=== PATIENT | male | born 1970 | race Caucasian/White ===

== ENCOUNTER → 2017-12-20 | Outpatient (REF) | payer OTHER | LOC: M LAB REF 19:15 | DX: L02.413 Cutaneous abscess of right upper limb (principal) ==

== ENCOUNTER → 2018-10-16 | Outpatient (CLI) | payer OTHER ==
--- NOTE | 2018-10-17 09:29 | REP ---
MR LUMBAR SPINE WITHOUT CONTRAST: HISTORY: Back pain. Decreased signal intensity on T2-weighted images is present in the L1-2, L2-3, L4-5, and L5-S1 intervertebral discs. The discs represents disc degeneration. There is no disc bulge or herniation at the L1-2 level. The L1 nerves exit the neural foramina without compression. A diffuse disc bulge is present at the L2-3 level. There is minimal compression of the thecal sac. There is hypertrophy of the posterior articulating facets. L2 nerves exit the neural foramina without compression. A diffuse disc bulge is present at the L3-4 level. There is minimal compression of the thecal sac. There is hypertrophy of the posterior articulating facets. The L3 nerves exit the neural foramina without compression. A diffuse disc bulge is present at the L4-5 level. There is minimal compression of the thecal sac. There is hypertrophy of the posterior articulating facets. The L4 nerves exit the neural foramina without compression. A diffuse disc bulge and small right paracentral is present at the L5-S1 level. There is minimal compression of the thecal sac. There is hypertrophy of the posterior articulating facets. The L5 nerves exit the neural foramina without compression. The conus medullaris is normal in appearance terminating at the level of the L1-2 intervertebral disc. Increased signal intensity on T2-weighted images is present in the end plates of the L5 and S1 vertebral bodies. This represents degenerative changes. IMPRESSION: 1. Diffuse disc bulges at the L2-3 through L4-5 levels with minimal thecal sac compression. 2. Diffuse disc bugle and small right paracentral disc protrusion at the L5-S1 level with minimal thecal sac compression. Electronically Signed by Arsh Patel MD 10/17/2018 09:47 A
== END ==
LOC: M RAD 17:04
PROVIDERS: ATTEND Family Medicine
DX: M51.26 Other intervertebral disc displacement, lumbar region (principal); M51.27 Other intervertebral disc displacement, lumbosacral region

== ENCOUNTER 2019-04-03 04:10 | Emergency (ER) | payer OTHER ==
[~2019-04-03] VITALS: Ht 188 cm; Wt 93.2 kg
[2019-04-03] MEDS ORDERED: CELE1CAP9 (04:17)
[2019-04-03] MEDS ORDERED: DULO1CAP4 (04:17)
[2019-04-03] MEDS ORDERED: VIAG100T (04:17)
[2019-04-03] MEDS ORDERED: METH1TAB40 (04:17)
[2019-04-03] MEDS ORDERED: DULO1CAP5 (04:17)
[2019-04-03] MEDS ORDERED: SILD100T (04:17)
[2019-04-03] MEDS ORDERED: ONDANSETRON 4MG/2ML VIAL (J2405) IV ONE (05:45)
[2019-04-03] MEDS ORDERED: KETOROLAC 30 MG/ML VIAL (J1885) IV ONE (05:45)
[2019-04-03 05:59] LABS: ALT/SGPT 61 U/L (12-78); BILIRUBIN,DIRECT 0.2 MG/DL (0.0-0.2); BLOOD UREA NITROGEN 24 MG/DL (7-18); CALCIUM LEVEL 9.1 MG/DL (8.5-10.1); CARBON DIOXIDE LEVEL 29 MEQ/L (21-32); CHLORIDE LEVEL 108 MEQ/L (98-107); CREATININE FOR GFR 1.17 MG/DL (0.70-1.30); GLOMERULAR FILTRATION RATE > 60.0 (>60); GLUCOSE, FASTING 123 MG/DL (70-100); POTASSIUM SERUM 3.9 MEQ/L (3.5-5.1); SODIUM LEVEL 141 MEQ/L (136-145); TOTAL PROTEIN 7.4 GM/DL (6.4-8.2)
[2019-04-03 06:01] LABS: HEMATOCRIT 46.3 % (42.0-52.0); HEMOGLOBIN 15.1 g/dl (13.5-17.5); MEAN CORPUSCULAR HEMOGLOBIN 29.7 pg (27.0-33.0); MEAN CORPUSCULAR HGB CONC 32.6 g/dl (32.0-36.5); PLATELET COUNT, AUTOMATED 187 10^3/uL (150-450); RED BLOOD COUNT 5.09 10^6/uL (4.30-6.10); WHITE BLOOD COUNT 11.8 10^3/uL (4.0-10.0)
--- NOTE | 2019-04-03 07:20 | REPVR ---
PROCEDURE INFORMATION: Exam: CT Abdomen And Pelvis Without Contrast Exam date and time: 04/03/2019 6:31 AM Age: 48 years old Clinical history: Abdominal pain; Flank; Right; Additional info: Right flank pain TECHNIQUE: Imaging protocol: Computed tomography of the abdomen and pelvis without contrast. Radiation optimization: All CT scans at this facility use at least one of these dose optimization techniques: automated exposure control; mA and/or kV adjustment per patient size (includes targeted exams where dose is matched to clinical indication); or iterative reconstruction. COMPARISON: No relevant prior studies available. FINDINGS: Detailed evaluation of the abdominal and pelvic viscera is somewhat limited in the absence of intravenous contrast. Pleural space: Trace right basilar airspace disease and pleural effusion. Liver: No focal hepatic mass. Gallbladder and bile ducts: No cholelithiasis or biliary ductal dilatation. Pancreas: No pancreatic mass or ductal dilatation. Spleen: Splenic granulomata. Adrenals: Unremarkable adrenals. Kidneys and ureters: Moderate right hydronephrosis in association with a 4 mm right UVJ calculus. Mild infiltration of right perinephric and periureteral fat. Stomach and bowel: Wall thickening in the nondistended stomach, rectum, and left colon. Prominent stool and diverticula, without pericolonic inflammation. Appendix: No acute appendicitis. Intraperitoneal space: No free fluid. Vasculature: Normal caliber of the abdominal aorta. Lymph nodes: Subcentimeter lymph nodes. Bladder: Normal bladder morphology. Reproductive: Unremarkable as visualized. Bones/joints: Schmorl's nodes and vertebral endplate irregularity. Degenerative change and L5-S1 vacuum disc. Soft tissues: Small fat containing umbilical and inguinal hernias. Punctate calcification in the right inguinal canal. IMPRESSION: 1. Moderate right hydronephrosis in association with a 4 mm right UVJ calculus. 2. Wall thickening in the nondistended stomach, rectum, and left colon. 3. Prominent stool and diverticula, without pericolonic inflammation. 4. Additional findings as described above. Electronically signed by: Mikhail Hanley On 04/03/2019 07:19:59 AM
[2019-04-03] MEDS ORDERED: FLOM0.4C39 PO ×2 (07:37→07:50)
[2019-04-03] MEDS ORDERED: PERC5TAB12 PO ×2 (07:37→07:50)
[2019-04-03] MEDS ORDERED: TAMSULOSIN 0.4 MG CAP PO ONE (07:45)
[2019-04-03 07:48] VITALS: BP 123/69
== END 2019-04-03 08:17 | disposition home or self-care (01) ==
LOC: M ED 04:10
DX: N13.2 Hydronephrosis with renal and ureteral calculous obstruction (principal); G89.29 Other chronic pain; M54.9 Dorsalgia, unspecified; Z86.14 Personal history of Methicillin resistant Staphylococcus aureus infection; Z79.891 Long term (current) use of opiate analgesic; Z79.899 Other long term (current) drug therapy
CPT/HCPCS: 36415; 74176; 80048; 80076; 81001; 85027; 96374; 96375; 99284; J1885; J2405

== ENCOUNTER 2020-05-28 06:54 | Day surgery (SDC) | payer OTHER ==
[~2020-05-28] VITALS: Ht 188 cm; Wt 98.0 kg
[~2020-05-28 06:54] MED LIST: ACET650T15 PO; CELE1CAP9; DULO1CAP4; DULO1CAP5; FLOM0.4C39 PO; METH-1164; MULT-90 PO; NEUR300C PO; NS 1,000 ML IV ONE; PERC5TAB12 PO; SILD100T; VIAG100T
--- OUTSIDE RECORDS SUMMARY | 2020-05-28 06:59 | CCD | Continuity of Care Document ---
Author Author Christiano MATTHEWS DC Organization Unknown Address [address] [place] [address] [place] [address] Phone [phone] Care Team Providers Care Stenciler Name Role Phone [facility] AUTM [facility] AUTM [phone] Problems Description No Information Available Social History Type Date Description Comments Sex Unknown ETOH Use Drinks 1 Alcoholic Beverage Per Day Tobacco Use Start: Unknown Patient has never smoked Tobacco Use Start: Unknown The Patient Has Never Vaped Smoking Status Reviewed: 03/29/20 The Patient Has Never Vaped Allergies, Adverse Reactions, Alerts Description No Known Drug Allergies Medications Active Medications SIG Qnty Indications Ordering Provide r Date Doxycycline Hyclate 100mg Capsules 1 twice a day x 7 days, take with food 14caps J01.90 Jose lane JR., M.D. 03/29/2020 Prednisone 20mg Tablets 1 tabs three x daily for 5 days 15tabs J01.90 Jose Ferreira JR., M.D. Celebrex 200mg Capsules Unknown Zyrtec Allergy 10mg Capsules 1 by mouth every day Unknown Robaxin 500mg Tablets take one twice a day for muscle relaxant Unknown Tylenol 8 Hour 800mg Tablets ER as directed Unknown Multivitamin Adult Chewtabs 1 by mouth every day Unknown Gabapentin 300mg Capsules Unknown Immunizations Description No Information Available Vital Signs Date Vital Result Comment 03/29/2020 12:09pm BP Systolic 127 mmHg BP Diastolic 87 mmHg Heart Rate 54 /min Respiratory Rate 16 /min O2 % BldC Oximetry 98 % Body Temperature 98.0 F Weight 210.00 lb Height 74 inches 6'2" BMI (Body Mass Index) 27.0 kg/m2 Pain Level 1 08/24/2019 5:54pm BP Systolic 140 mmHg BP Diastolic 90 mmHg Heart Rate 60 /min Respiratory Rate 16 /min O2 % BldC Oximetry 99 % Body Temperature 98.5 F Weight 202.00 lb Height 74 inches 6'2" BMI (Body Mass Index) 25.9 kg/m2 Pain Level 3 Results Description No Information Available Procedures Description No Information Available Medical Devices Description No Information Available Encounters Type Date Location Provider Dx Diagnosis Office Visit 03/29/2020 10:10a Main Office MAKENZIE Vergara J01.9 0 Acute sinusitis, unspecified Assessments Date Code Description Provider 03/29/2020 J01.90 Acute sinusitis, unspecified MAKENZIE Gilbert Plan of Treatment 03/29/2020 - MAKENZIE Vergara* J01.90 Acute sinusitis, unspecified* New Medication:* Doxycycline Hyclate 100 mg - 1 twice a day x 7 days, take with food * Prednisone 20 mg - 1 tabs three x daily for 5 days * Comments:* Supportive care: Vit c, rest, push clear fluids, steam. RTC if worsening despite txt, persistent sxs or new sxs Functional Status Description No Information Available Mental Status Description No Information Available Referrals Refer to Reason for Referral Status Appt Date Hayley Matthews PA Created [facility] [place] [address] [phone]
--- OUTSIDE RECORDS SUMMARY | 2020-05-28 06:59 | CCD | Continuity of Care Document ---
Author Author Christiano LAMA M.D. Organization Unknown Address [address] [place] [address] Phone [phone] Care Team Providers Care Marketing Strategy Lead Name Role Phone Carl Aparicio AUTM [phone] Problems Active Problems Provider Date Screening for malignant neoplasm of colon Rob hu M.D. Onset: 04/24/2020 Social History Type Date Description Comments Sex Unknown ETOH Use Occasionally Tobacco Use Start: Unknown Patient has never smoked Allergies, Adverse Reactions, Alerts Description No Known Drug Allergies Medications Active Medications SIG Qnty Indications Ordering Provide r Date Suprep Bowel Prep Kit 17.5-3.13-1.6GM/177ML Solution use as directed 354ml Rob Lama M.D. 04/24/2020 Methocarbamol 500mg Tablets Freida Damon MD Gabapentin 300mg Capsules Freida Damon MD Celecoxib 200mg Capsules Freida Damon MD Sildenafil Citrate 100mg Tablets Unknown Duloxetine HCL 20mg Caps Freida Landin MD Tylenol 325mg Capsules Unknown Multiple Vitamin Tablets Unknown Immunizations Description No Information Available Vital Signs Date Vital Result Comment 04/24/2020 12:35pm Height 74 inches 6'2" Weight 225.00 lb BP Systolic 133 mmHg BP Diastolic 85 mmHg Heart Rate 64 /min BMI (Body Mass Index) 28.9 kg/m2 Weight 102.060 kg Body Temperature 97.3 F Results Description No Information Available Procedures Description No Information Available Medical Devices Description No Information Available Encounters Type Date Location Provider Dx Diagnosis Office Visit 04/24/2020 12:30p Main Office Rob Lama M.D. Z 12.11 Encounter for screening for malignant neoplasm of colon Assessments Date Code Description Provider 04/24/2020 Z12.11 Encounter for screening for cinthia gnant neoplasm of colon Rob Lama M.D. Plan of Treatment Future Appointment(s):* 05/28/2020 8:00 am - Rob Lama M.D. at Main Office 04/24/2020 - Rob Lama M.D.* Z12.11 Encounter for screening for malignant neoplasm of colon* Comments:* 49 yo wm who presents for a screening colonoscopy. No c/o abdominal pain, weight loss, change in bowel habits, or rectal bleeding. No family h/o colon cancer. No h/o chest pain, or sob. Plan:1.Schedule patient for a colonoscopy.2.Informed consent given to the patient.3.Pt. advised to stop aspirin,plavix, and anticoagulants at least 3 to 7 days prior to the procedure. Functional Status Description No Information Available Mental Status Description No Information Available Referrals Refer to Reason for Referral Status Appt Date Rob Lama M.D. Created [address] [place] [address] [phone]
--- OUTSIDE RECORDS SUMMARY | 2020-05-28 07:00 | CCD ---
Author Author [facility] Organization [facility] Address Unknown Phone Unavailable Care Team Providers Care Wing Scorer Name Role Phone Vane Lama MD Unavailable Unavailable Vane Lama MD Unavailable Unavailable Vane Lama MD Unavailable Unavailable Vane Lama MD Unavailable Unavailable Vane Lama MD Unavailable Unavailable Vane Lama MD Unavailable Unavailable Vane Lama MD Unavailable Unavailable Vane Lama MD Unavailable Unavailable Vane Lama MD Unavailable Unavailable Vane Lama MD Unavailable Unavailable Vane Lama MD Unavailable Unavailable Vane Lama MD Unavailable Unavailable Vane Lama MD Unavailable Unavailable Vane Lama MD Unavailable Unavailable Vane Lama MD Unavailable Unavailable Vane Lama MD Unavailable Unavailable Vane Lama MD Unavailable Unavailable Vane Lama MD Unavailable Unavailable Vane Lama MD Unavailable Unavailable Vane Lama MD Unavailable Unavailable Vane Lama MD Unavailable Unavailable Vane Lama MD Unavailable Unavailable Vane Lama MD Unavailable Unavailable Vane Lama MD Unavailable Unavailable Vane Lama MD Unavailable Unavailable Vane Lama MD Unavailable Unavailable Vane Lama MD Unavailable Unavailable Vane Lama MD Unavailable Unavailable Vane Lama MD Unavailable Unavailable Vane Lama MD Unavailable Unavailable Vane Lama MD Unavailable Unavailable Vane Lama MD Unavailable Unavailable Vane Lama MD Unavailable Unavailable Vane Lama MD Unavailable Unavailable Vane Lama MD Unavailable Unavailable Vane Lama MD Unavailable Unavailable Vane Lama MD Unavailable Unavailable Kelby, S Rob MD Unavailable Unavailable Kelby, S Rob MD Unavailable Unavailable Kelby, S Rob MD Unavailable Unavailable Kelby, S Rob MD Unavailable Unavailable Kelby, S Rob MD Unavailable Unavailable Kelby, S Rob MD Unavailable Unavailable Kelby, S Rob MD Unavailable Unavailable Kelby, S Rob MD Unavailable Unavailable Kelby, S Rob MD Unavailable Unavailable Kelby, S Rob MD Unavailable Unavailable Kelby, S Rob MD Unavailable Unavailable RING, K JN PA Unavailable Unavailable RING, K JN PA Unavailable Unavailable RING, K JN PA Unavailable Unavailable RING, K JN PA Unavailable Unavailable RING, K JN PA Unavailable Unavailable RING, K JN PA Unavailable Unavailable RING, K JN PA Unavailable Unavailable RING, K JN PA Unavailable Unavailable RING, K JN PA Unavailable Unavailable RING, K JN PA Unavailable Unavailable RING, K JN PA Unavailable Unavailable RING, K JN PA Unavailable Unavailable RING, K JN PA Unavailable Unavailable RING, K JN PA Unavailable Unavailable RING, K JN PA Unavailable Unavailable RING, K JN PA Unavailable Unavailable RING, K JN PA Unavailable Unavailable RING, K JN PA Unavailable Unavailable RING, K JN PA Unavailable Unavailable RING, K JN PA Unavailable Unavailable Matthews, Jaycee Hayley PA Unavailable Unavailable Matthews, Jaycee Hayley PA Unavailable Unavailable Matthews, Jaycee Hayley PA Unavailable Unavailable Matthews, Jaycee Hayley PA Unavailable Unavailable Matthews, Jaycee Hayley PA Unavailable Unavailable Matthews, Jaycee Hayley PA Unavailable Unavailable Matthews, Jaycee Hayley PA Unavailable Unavailable Matthews, Jaycee Hayley PA Unavailable Unavailable Matthews, Jaycee Hayley PA Unavailable Unavailable Matthews, Jaycee Hayley PA Unavailable Unavailable Re-disclosure Warning The records that you are about to access may contain information from federally-assisted alcohol or drug abuse programs. If such information is present, then the following federally mandated warning applies: This information has been disclosed to you from records protected by federal confidentiality rules (42 CFR part 2). The federal rules prohibit you from making any further disclosure of this information unless further disclosure is expressly permitted by the written consent of the person to whom it pertains or as otherwise permitted by 42 CFR part 2. A general authorization for the release of medical or other information is NOT sufficient for this purpose. The Federal rules restrict any use of the information to criminally investigate or prosecute any alcohol or drug abuse patient.The records that you are about to access may contain highly sensitive health information, the redisclosure of which is protected by Article 27-F of the [facility] Public Health law. If you continue you may have access to information: Regarding HIV / AIDS; Provided by facilities licensed or operated by the [facility] Office of Mental Health; or Provided by the [facility] Office for People With Developmental Disabilities. If such information is present, then the following [facility] mandated warning applies: This information has been disclosed to you from confidential records which are protected by state law. State law prohibits you from making any further disclosure of this information without the specific written consent of the person to whom it pertains, or as otherwise permitted by law. Any unauthorized further disclosure in violation of state law may result in a fine or longterm sentence or both. A general authorization for the release of medical or other information is NOT sufficient authorization for further disc losure. Family History Family Member Name Family Member Gender Family Member Status Date o f Status Description Data Source(s) Unknown Male Problem [facility] ([facility]) Unknown Unknown Problem [facility] ([facility]) Encounters Encounter Providers Location Date Indications Data Source(s ) Outpatient Attender: Rob Lama MD Main Office 04/24/2020 11:30:00 AM EST [facility] ([facility]) Outpatient Attender: Hayley Meier Prim hemal 03/29/2020 09:10:00 AM EST [facility] ([facility]) Outpatient Attender: Hayley Meier Prim hemal 08/24/2019 05:45:00 PM EDT [facility] ([facility]) Outpatient Attender: JN Meier Primary 07/21/2019 12:45:00 PM EDT [facility] ([facility]) Medications Medication Brand Name Start Date Product Form Dose Route Admi nistrative Instructions Pharmacy Instructions Status Indications Reaction Description Data Source(s) Suprep Bowel Prep Kit Suprep Bowel Prep Kit 04/24/2020 12:00:00 AM EST active [facility] ([facility]) Prednisone 20 MG Oral Tablet Prednisone 03/29/2020 12:00:00 AM EST active [facility] ([facility], [facility]) doxycycline hyclate 100 MG Oral Capsule Doxycycline Hyclate 03/29/2020 12:00:00 AM EST active [facility] ([facility], [facility]) 24 HR Fexofenadine hydrochloride 180 MG / Pseudoephedrine Hydrochloride 240 MG Extended Release Oral Tablet Betty-D 24 Hour Allergy & Congestion 08/24/2019 12:00:00 AM EDT active M EDENT ([facility], [facility]) Amoxicillin 875 MG / Clavulanate 125 MG Oral Tablet Am oxicillin/Clavulanate Potassium 07/21/2019 12:00:00 AM EDT ORAL completed MED[facility] ([facility]) Insurance Providers Payer name Policy type / Coverage type Policy ID Covered libertarian ID Covered libertarian's relationship to mao Policy Mao Plan Information [employer] [id number] SP [id number] [employer] [id number] SP [id number] East Referrals Commercial [id number] Self [id number] East Referrals Commercial [id number] Self [id number] HU[employer]NA [place] [facility] O [id number] S [id number] [place] Referrals Commercial [id number] Self [id number] East Commercial [id number] Self [id number] [facility] O [id number] S [id number] [facility] UNAVAILABLE S UNAVAILABLE Problems, Conditions, and Diagnoses Code Display Name Description Problem Type Effective Dates Data Source(s) [id number] Screening for malignant neoplasm of colo n Screening for malignant neoplasm of colon Problem 04/24/2020 12:00:00 AM EST [facility] ([facility]) Results ID Date Data Source [id number] 05/23/2020 09:36:00 AM EST [facility] Name Value Range Interpretation Code Description Data Sangeetha rce(s) Supporting Document(s) SARS coronavirus 2 RNA Not Detected [facility] This lab was ordered by [facility] Laboratory and reported by [facility]. ID Date Data Source [id number] 03/29/2020 12:00:00 AM EST [place] Name Value Range Interpretation Code Description Data Sangeetha rce(s) Supporting Document(s) SARS coronavirus 2 Ag [facility] This lab was ordered by [facility] and reported by [facility]. Procedure Vital Signs ID Date Data Source UNK Name Value Range Interpretation Code Description Data Source(s) Body temperature 97.3 [degF] 97.3 [degF] [facility] ([facility]) Body weight 102.060 kg 102.060 kg [facility]) Body mass index (BMI) [Ratio] 28.9 kg/m2 28.9 k g/m2 [facility] ([facility]) Heart rate 64 /min 64 /min [facility] ([facility]) Diastolic blood pressure 85 mm[Hg] 85 mm[Hg] [facility] ([facility]) Systolic blood pressure 133 mm[Hg] 133 mm[Hg] [facility] ([facility]) Body weight 225.00 [lb_av] 225.00 [lb_av] [facility] T ([facility]) Body height 74 [in_i] 74 [in_i] [facility] ([facility]) 6'2" Body mass index (BMI) [Ratio] 27.0 kg/m2 27.0 k g/m2 [facility] ([facility]) Body height 74 [in_i] 74 [in_i] [facility] ([facility]) 6'2" Body weight 210.00 [lb_av] 210.00 [lb_av] [facility] T ([facility]) Body temperature 98.0 [degF] 98.0 [degF] [facility] ([facility]) Oxygen saturation in Arterial blood by Pulse oximetry 98 % 98 % [facility] ([facility], [facility]) Respiratory rate 16 /min 16 /min [facility] ( [facility]) Heart rate 54 /min 54 /min [facility] ([facility], [facility]) Diastolic blood pressure 87 mm[Hg] 87 mm[Hg] [facility] ([facility], [facility]) Systolic blood pressure 127 mm[Hg] 127 mm[Hg] [facility] ([facility], [facility]) Body mass index (BMI) [Ratio] 25.9 kg/m2 25.9 k g/m2 [facility] ([facility], [facility]) Body height 74 [in_i] 74 [in_i] [facility] ([facility], [facility]) 6'2" Body weight 202.00 [lb_av] 202.00 [lb_av] [facility] ([facility], [facility]) Body temperature 98.5 [degF] 98.5 [degF] [facility] ([facility], [facility]) Oxygen saturation in Arterial blood by Pulse oximetry 99 % 99 % [facility] ([facility], [facility]) Respiratory rate 16 /min 16 /min [facility] ( [facility], [facility]) Heart rate 60 /min 60 /min [facility] ([facility], [facility]) Diastolic blood pressure 90 mm[Hg] 90 mm[Hg] [facility] ([facility], [facility]) Systolic blood pressure 140 mm[Hg] 140 mm[Hg] [facility] ([facility], [facility]) Body mass index (BMI) [Ratio] 25.9 kg/m2 25.9 k g/m2 [facility] ([facility], [facility]) Body height 74 [in_i] 74 [in_i] [facility] ([facility], [facility]) 6'2" Body weight 202.00 [lb_av] 202.00 [lb_av] MED[facility] T ([facility], [facility]) Body temperature 98.2 [degF] 98.2 [degF] [facility] ([facility], [facility]) Oxygen saturation in Arterial blood by Pulse oximetry 96 % 96 % [facility] ([facility], [facility]) Respiratory rate 18 /min 18 /min [facility] ( [facility], [facility]) Heart rate 85 /min 85 /min [facility] ([facility], [facility]) Diastolic blood pressure 97 mm[Hg] 97 mm[Hg] [facility] ([facility], [facility]) Systolic blood pressure 144 mm[Hg] 144 mm[Hg] [facility] ([facility])
--- OUTSIDE RECORDS SUMMARY | 2020-05-28 07:00 | CCD | Continuity of Care Document ---
Author Author Christiano VYAS [place] Organization Unknown Address [address] [place] [address] [place] [address] Phone [phone] Care Team Providers Care Rectangular Tank Cooper Name Role Phone [facility] AUTM [phone] [facility] AUTM [phone] Problems Description No Information Available Social History [...] Mental Status Description No Information Available Referrals Description No Information Available
[2020-05-28] MEDS ORDERED: propofoL 200 MG/20 ML VIAL As Ordered ONE ×2 (07:44→08:32)
[2020-05-28] MEDS ORDERED: LIDOCAINE 2% 100MG/5ML SDV (FOR ANES.) As Ordered ONE (07:44)
--- NOTE | 2020-05-28 08:42 | ROOR ---
Patient Name: Christiano Everett Procedure Date: 05/28/2020 8:22 AM Date of : 1970 Age: 49 Room: [facility] Gender: Male Note Status: Finalized Procedure: Total Colonoscopy to Cecum + ileoscopy Indications: Screening for colorectal malignant neoplasm Providers: Rob Lama MD Referring MD: JULIO KIM MD Requesting Provider: Medicines: Monitored Anesthesia Care Complications: No immediate complications. Procedure: Pre-Anesthesia Assessment: - The heart rate, respiratory rate, oxygen saturations, blood pressure, adequacy of pulmonary ventilation, and response to care were monitored throughout the procedure. The Colonoscope was introduced through the anus and advanced to the terminal ileum, with identification of the appendiceal orifice and IC valve. The colonoscopy was performed without difficulty. The patient tolerated the procedure well. The quality of the bowel preparation was excellent. Findings: The perianal and digital rectal examinations were normal. Non-bleeding internal hemorrhoids were found during retroflexion. The hemorrhoids were small and Grade I (internal hemorrhoids that do not prolapse). No other significant abnormalities were identified in a careful examination of the remainder of the colon. The exam was otherwise without abnormality on direct and retroflexion views. The terminal ileum appeared normal. The exam was otherwise without abnormality on direct and retroflexion views. Impression: - Non-bleeding internal hemorrhoids. - The examination was otherwise normal on direct and retroflexion views. - The examined portion of the ileum was normal. - The examination was otherwise normal on direct and retroflexion views. - No specimens collected. - The exam was otherwise normal to the cecum. Recommendation: - Patient has a contact number available for emergencies. The signs and symptoms of potential delayed complications were discussed with the patient. Return to normal activities tomorrow. Written discharge instructions were provided to the patient. - High fiber diet. - Discharge patient to home. - Continue present medications. - Repeat colonoscopy in 10 years for screening purposes. - Return to referring physician. - The findings and recommendations were discussed with the patient. Procedure Code(s): --- Professional --- 23950, Colonoscopy, flexible; diagnostic, including collection of specimen(s) by brushing or washing, when performed (separate procedure) Diagnosis Code(s): --- Professional --- Z12.11, Encounter for screening for malignant neoplasm of colon K64.0, First degree hemorrhoids CPT copyright 2019 [employer]. All rights reserved. The codes documented in this report are preliminary and upon security system administrator review may be revised to meet current compliance requirements. Rob Lama MD Rob Lama MD 05/28/2020 8:41:56 AM Electronically signed by Rob Lama MD Number of Addenda: 0 Note Initiated On: 05/28/2020 8:22 AM Estimated Blood Loss: Estimated blood loss: none.
[2020-05-28 09:05] VITALS: BP 140/86
== END 2020-05-28 09:13 | disposition home or self-care (01) ==
LOC: M OPP 06:54
PROVIDERS: ATTEND Internal Medicine Gastroenterology
DX: Z12.11 Encounter for screening for malignant neoplasm of colon (principal); K64.0 First degree hemorrhoids; M19.90 Unspecified osteoarthritis, unspecified site; G43.909 Migraine, unspecified, not intractable, without status migrainosus; Z79.899 Other long term (current) drug therapy